=== PATIENT | female | born 1985 | race Caucasian/White ===

== ENCOUNTER 2021-06-30 14:47 | Emergency (ER) | payer OTHER, SELFPAY ==
[2021-06-30 14:57] VITALS: BP 126/89; PULSE 116; RESP 16; TEMP 38.2; O2SAT 99
[2021-06-30 14:58] VITALS: BP 126/89; PULSE 116; RESP 16; TEMP 38.2; O2SAT 99
--- NOTE | 2021-06-30 17:16 | ED.URI ---
HPI - URI/Sore Throat General Chief Complaint: Upper Respiratory Infection Stated Complaint: fever/body aches/cough/sore throat Source: patient and RN notes reviewed Limitations: no limitations History of Present Illness HPI Narrative: The vaccinated patient, non-smoker/nondrinker high school employee, presents with a 2-day history of cough associated with fever to 101 and chest pains only when coughing. No earache, wheeze loss of taste/smell, vomiting/diarrhea/dehydration, rash,, shortness of breath. Symptoms are mild, worse somewhat at night, somewhat possibly associated with nighttime wheeze. Vital signs remarkable for temperature 100.8, pulse 116; [id number] testing for Covid negative Related Data Allergies Allergy/AdvReac Type Severity Reaction Status Date / Time No Known Allergies Allergy Unverified 11/17/18 12:39 Review of Systems Review of Systems: General/Constitutional: No weight loss, HAS fever Eyes: N0: Redness,discharge Ears/Nose/Throat: No: Epistaxis,ear discharge Respiratory: Denies: Hemoptysis Gastrointestinal: No Vomiting, Bleeding-rectal Skin: No Lumps, eruption Neurologic: No Focal Weakness,Sz Hematologic: Denies: Petechiae/Purpura Psychiatric: No: Suicida ideationl All Other Systems: Reviewed and Negative PMFSH Social History Social History Smoking status: Never smoker Second hand tobacco smoke exposure: No Comments At time of signature, agree with nursing past medical, surgical, social and family history. There is no relevant family history pertinent to the presenting complaint Exam Narrative: General Appearance: Well appearing, Well nourished EYE: PERRLA, Conjunctiva clear Ears: Auditory canal normal, TM normal Nose: Rhinorrhea, Mucousal erythema Mouth/Throat: MM moist, Uvula midline, Pharyngeal erythema Neck: Supple, No adenopathy Respiratory: No respiratory distress, Breath sounds equal, Clear to auscultation Cardiovascular: Tacky RRR, No JVD Musculoskeletal: Non tender, Normal strength Skin: Warm, Dry Neurological: A&O x3, CN II-XII intact Psychiatric: Normal mood, Normal affect Course Vital Signs Vital signs: Vital Signs Temperature 100.8 F H 06/30/21 14:57 Pulse Rate 116 H 06/30/21 14:57 Respiratory Rate 16 06/30/21 14:57 Blood Pressure 126/89 06/30/21 14:57 Pulse Oximetry 99 06/30/21 14:57 Temperature 100.8 F H 06/30/21 14:58 Pulse Rate 116 H 06/30/21 14:58 Respiratory Rate 16 06/30/21 14:58 Blood Pressure 126/89 06/30/21 14:58 Pulse Oximetry 99 06/30/21 14:58 MDM - URI/Sore Throat Lab Data Labs: Lab Results 06/30/21 Range/Units 16:41 POC SARS CoV-2 Ag Negative (Negative) Influenza A Screen Negative Reference Range: Negative Influenza B Screen Negative Reference Range: Negative Discharge Plan Discharge Clinical Impression: Upper respiratory infection Qualifiers: URI type: unspecified URI Qualified Code(s): J06.9 - Acute upper respiratory infection, unspecified Patient Disposition: Home, Self-Care Condition: Stable Instructions: Pharyngitis (ED) Prescriptions: New lidocaine HCl [Lidocaine Viscous] 2 % solution 5 ml MUCOUS MEM QID PRN (Reason: pain) Qty: 100 RF: 0 codeine-guaifenesin 10-100 mg/5 mL liquid 7.5 ml PO Q6H PRN (Reason: cough) Qty: 118 RF: 0 albuterol sulfate [Ventolin HFA] 90 mcg/actuation HFA aerosol inhaler 2 puff INHALATION QID PRN (Reason: shortness of breath or wheezing) Qty: 8.5 RF: 1 Other Ambulatory Orders: SARS-CoV-2 RNA, Qual RT-PCR (Routine) Location: Determined by Patient Ordered By: Mohsen Walker Follow-up/Referrals: PHYSICIAN NOT ON STAFF,NONSTAFF [Primary Care Provider] -
== END 2021-06-30 17:27 | disposition home or self-care (01) ==
PROVIDERS: Emergency Provider Emergency Medicine
DX: J06.9 Acute upper respiratory infection, unspecified (principal); Z20.822 Contact with and (suspected) exposure to COVID-19
CPT/HCPCS: 87426; 87804; 99213; C9803; G0463

== ENCOUNTER → 2021-07-02 00:51 | Outpatient (CLI) | payer OTHER, SELFPAY ==
[2021-07-02 20:43] LABS: SARS-CoV-2 RNA PCR Positive
== END ==
PROVIDERS: Visit Provider Emergency Medicine
DX: U07.1 COVID-19 (principal); J06.9 Acute upper respiratory infection, unspecified
CPT/HCPCS: C9803; U0003; U0005

== ENCOUNTER 2024-11-04 09:40 | Emergency (ER) | payer OTHER, SELFPAY ==
[2024-11-04 09:49] VITALS: BP 149/100; PULSE 80; RESP 18; TEMP 37; O2SAT 100
--- OUTSIDE RECORDS SUMMARY | 2024-11-04 10:20 | XMS_ITS | Referral Summary ---
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 Gender Identity Not on file Sexual Orientation Not on file Last Filed Vital Signs Vital Sign Reading Time Taken Comments Blood Pressure 110/88 08/14/2023 2:14 PM HEAD LOFT WORKER Pulse - - Temperature 36.7 C (98 F) 08/14/2023 2:14 PM HEAD LOFT WORKER Respiratory Rate 22 08/14/2023 2:14 PM HEAD LOFT WORKER Oxygen Saturation 94% 08/14/2023 2:14 PM HEAD LOFT WORKER Inhaled Oxygen Concentration - - Weight 68 kg (150 lb) 08/14/2023 2:14 PM HEAD LOFT WORKER Height 152.4 cm (5') 08/14/2023 2:14 PM HEAD LOFT WORKER Body Mass Index 29.29 08/14/2023 2:14 PM HEAD LOFT WORKER Plan of Treatment Not on file Insurance Care Teams Security Risk Analyst Relationship Specialty Start Date End Date Rylie Terry NP [address] [place] [address] PCP - General Family Practice 08/14/23
--- OUTSIDE RECORDS SUMMARY | 2024-11-04 10:20 | XMS_ITS | Clinical Summary ---
Author Organization [address] Address [address] [place] [id number] Care Team Providers Care Office Clerk Assistant Name Role Phone Rylie Terry NP Primary Care Provider [phone] Allergies No known active allergies Medications No known medications Active Problems No known active problems Social History Tobacco Use Types Packs/Day Years Used Date Smoking Tobacco: Never Assessed Comments Unknown Sex and Gender Information Value Date Recorded Sex Assigned at Not on file Legal Sex Female 10:02 PM APPLICATION INTEGRATION SPECIALIST Gender Identity Not on file Sexual Orientation Not on file Obstetrics History Last Filed Vital Signs Vital Sign Reading Time Taken Comments Blood Pressure 110/88 08/14/2023 2:14 PM APPLICATION INTEGRATION SPECIALIST Pulse - - Temperature 36.7 C (98 F) 08/14/2023 2:14 PM APPLICATION INTEGRATION SPECIALIST Respiratory Rate 22 08/14/2023 2:14 PM APPLICATION INTEGRATION SPECIALIST Oxygen Saturation 94% 08/14/2023 2:14 PM APPLICATION INTEGRATION SPECIALIST Inhaled Oxygen Concentration - - Weight 68 kg (150 lb) 08/14/2023 2:14 PM APPLICATION INTEGRATION SPECIALIST Height 152.4 cm (5') 08/14/2023 2:14 PM APPLICATION INTEGRATION SPECIALIST Body Mass Index 29.29 08/14/2023 2:14 PM APPLICATION INTEGRATION SPECIALIST Plan of Treatment Health Maintenance Due Date Last Done Comments Cervical Cancer Screening 1985 Depression Screening 1985 Hepatitis C Screening 1985 DTaP/Tdap/Td Vaccine (1 - Tdap) 01/02/1996 Varicella Vaccines (1 of 2 - 13+ 2-dose series) 1998 Hepatitis B Screening 2003 Regular Well Visit/Exam 18-64 2003 Influenza Vaccine (Season Ended) 2025 HPV Vaccines Aged Out No longer eligi ble based on patient's age to complete this topic Pneumococcal vaccine <65 Aged Out No longer eligible based on patient's age to complete this topic Insurance [facility] Care Teams Office Clerk Assistant Relationship Specialty Start Date End Date Rylie Terry NP [address] [place] [address] PCP - General Family Practice 08/14/23
--- NOTE | 2024-11-04 11:43 | ED.WOUNDLAC ---
HPI - Wound/Laceration General Chief Complaint: Wound/Laceration Stated Complaint: L thumb lac Time Seen by Provider: 11/04/24 11:07 Source: patient Mode of arrival: ambulatory Limitations: no limitations History of Present Illness HPI narrative: Was a 39-year-old female that presents to the emergency department for laceration sustained this morning. Reports she accidentally cut it slicing a bagel. Unsure of last tetanus vaccination. Denies decreased ROM or numbness. Related Data Allergies Allergy/AdvReac Type Severity Reaction Status Date / Time No Known Allergies Allergy Verified 11/04/24 09:40 Review of Systems Review of Systems: CONSTITUTIONAL: Denies fever SKIN: Reports laceration All systems reviewed & are unremarkable except as noted in HPI and below PMFSH Social History Social History Smoking status: Never smoker Second hand tobacco smoke exposure: No Exam Narrative: GENERAL: Well-appearing, well-nourished, and in no acute distress. HEAD: Normocephalic, atraumatic. EYES: EOMI. EXTREMITIES: Normal range of motion. No edema. 1.5 cm superficial linear laceration to the left thumb palmar aspect SKIN: Warm, dry, no rash. NEURO: No focal deficits. Alert and oriented x3. PSYCH: Normal mood and affect Course Course Emergency Course: Patient educated on further wound care Vital Signs Vital signs: Vital Signs Temperature 98.6 F 11/04/24 09:49 Pulse Rate 80 11/04/24 09:49 Respiratory Rate 18 11/04/24 09:49 Blood Pressure 149/100 H 11/04/24 09:49 Pulse Oximetry 100 11/04/24 09:49 Oxygen Delivery BiPAP 11/04/24 09:49 Temperature 98.6 F 11/04/24 09:49 Pulse Rate 80 11/04/24 09:49 Respiratory Rate 18 11/04/24 09:49 Blood Pressure 149/100 H 11/04/24 09:49 Pulse Oximetry 100 11/04/24 09:49 Oxygen Delivery BiPAP 11/04/24 09:49 Procedures Laceration Laceration 1: Date: 11/04/24 Time: 11:50 Site: hand Side (If applicable): left Size (cm): 1.5 Description: linear Depth: simple, single layer Pre-repair: irrigated ====== Skin Level ====== Skin layer closed with: steri strips ====== Subcutaneous Layer ====== ====== Muscle Layer ====== ====== Tendon Layer ====== MDM - Wound/Laceration MDM Narrative Medical decision making narrative: Patient presents to the emergency department for laceration to the left 5th finger sustained this morning. Laceration is fairly superficial. Closed with Steri-Strips and bandage. Updated on tetanus vaccination. She is to follow up with primary provider. She was given warnings to return to the ER Differential Diagnosis Differential diagnosis: Likely laceration, abrasion and avulsion of skin Critical Care Time Critical Care Time Critical Care Time: No Discharge Plan Discharge Clinical Impression: Laceration Patient Disposition: Home Condition: Stable Instructions: Laceration (ED), Skin Adhesive Strips (ED) Additional Instructions: Return to the emergency department if you experience fever, redness or swelling of your wound, abnormal drainage from your wound, or any other symptoms that are concerning to you. You may let the water run over your wound in the shower. When the steri strips fall off clean the area with soap and water and apply antibiotic ointment and a bandage Follow-up with your primary care doctor for wound check Patient Language: Pakistani Prescriptions: No Action lidocaine HCl [Lidocaine Viscous] 2 % solution 5 ml MUCOUS MEM QID PRN (Reason: pain) Qty: 100 0RF Rx Instructions: Gargle and spit codeine-guaifenesin 10-100 mg/5 mL liquid 7.5 ml PO Q6H PRN (Reason: cough) Qty: 118 0RF albuterol sulfate [Ventolin HFA] 90 mcg/actuation HFA aerosol inhaler 2 puff INHALATION QID PRN (Reason: shortness of breath or wheezing) Qty: 8.5 1RF Rx Instructions: Notify [call/text] when ready thanks Follow-up/Referrals: Choco,Moises Quinn [Other]
[2024-11-04] MEDS: TETANUS,DIPHTHERIA,AC PERTUSSIS ADULT (0.5 ML) BOOSTRIX IM (11:53)
[2024-11-04 11:56] VITALS: BP 126/90; PULSE 93; RESP 20; TEMP 36.1; O2SAT 100
--- OUTSIDE RECORDS SUMMARY | 2024-11-04 12:14 | XMS_ITS | Clinical Summary ---
Author Organization [address] Address [address] [place] [phone] Care Team Providers Care Commodity Buyer Name Role Phone Rylie Terry NP Primary Care Provider [phone] Allergies No known active allergies Medications No known medications Active Problems No known active problems Social History Tobacco Use Types Packs/Day Years Used Date Smoking Tobacco: Never Assessed Comments Unknown Sex and Gender Information Value Date Recorded Sex Assigned at Not on file Legal Sex Female 10:02 PM HEAD STILL OPERATOR Gender Identity Not on file Sexual Orientation Not on file Obstetrics History Last Filed Vital Signs Vital Sign Reading Time Taken Comments Blood Pressure 110/88 08/14/2023 2:14 PM HEAD STILL OPERATOR Pulse - - Temperature 36.7 C (98 F) 08/14/2023 2:14 PM HEAD STILL OPERATOR Respiratory Rate 22 08/14/2023 2:14 PM HEAD STILL OPERATOR Oxygen Saturation 94% 08/14/2023 2:14 PM HEAD STILL OPERATOR Inhaled Oxygen Concentration - - Weight 68 kg (150 lb) 08/14/2023 2:14 PM HEAD STILL OPERATOR Height 152.4 cm (5') 08/14/2023 2:14 PM HEAD STILL OPERATOR Body Mass Index 29.29 08/14/2023 2:14 PM HEAD STILL OPERATOR Plan of Treatment Health Maintenance Due Date [...] patient's age to complete this topic Insurance [facility] Care Teams Commodity Buyer Relationship Specialty Start Date End Date Rylie Terry NP [address] [place] [address] PCP - General Family Practice 08/14/23
--- OUTSIDE RECORDS SUMMARY | 2024-11-04 12:14 | XMS_ITS | Referral Summary ---
Author Organization [address] Address [address] [place] [phone] Care Team Providers Care Inside Wireman Name Role Phone Rylie Terry NP Primary Care Provider [phone] Allergies No known active allergies Medications No known medications Active Problems No known active problems Social History Tobacco Use Types Packs/Day Years Used Date Smoking Tobacco: Never Assessed Comments Unknown Sex and Gender Information Value Date Recorded Sex Assigned at Not on file Legal Sex Female 10:02 PM MANAGER MORTGAGE Gender Identity Not on file Sexual Orientation Not on file Last Filed Vital Signs Vital Sign Reading Time Taken Comments Blood Pressure 110/88 08/14/2023 2:14 PM MANAGER MORTGAGE Pulse - - Temperature 36.7 C (98 F) 08/14/2023 2:14 PM MANAGER MORTGAGE Respiratory Rate 22 08/14/2023 2:14 PM MANAGER MORTGAGE Oxygen Saturation 94% 08/14/2023 2:14 PM MANAGER MORTGAGE Inhaled Oxygen Concentration - - Weight 68 kg (150 lb) 08/14/2023 2:14 PM MANAGER MORTGAGE Height 152.4 cm (5') 08/14/2023 2:14 PM MANAGER MORTGAGE Body Mass Index 29.29 08/14/2023 2:14 PM MANAGER MORTGAGE Plan of Treatment Not on file Insurance Care Teams Inside Wireman Relationship Specialty Start Date End Date Rylie Terry NP [address] [place] [address] PCP - General Family Practice 08/14/23
== END 2024-11-04 12:11 | disposition home or self-care (01) ==
PROVIDERS: Emergency Provider Physician Assistant
DX: S61.012A Laceration without foreign body of left thumb without damage to nail, initial encounter (principal); W45.8XXA Other foreign body or object entering through skin, initial encounter; Z23 Encounter for immunization
CPT/HCPCS: 90471; 90715; 99282